=== PATIENT | female | born 1990 | race Caucasian/White ===

== ENCOUNTER 2016-04-25 16:58 | Emergency (ER) | payer SELFPAY ==
[2016-04-25] MEDS ORDERED: Ondansetron ODT 4 MG TAB ONE (17:24)
[2016-04-25 17:46] LABS: Bilirubin Negative (Negative); Blood, Urine Trace (Negative); Clarity Slightly Cloudy (Clear); Glucose, Urine (Dipstick) Negative (Negative); Leukocyte Small (Negative); Nitrite Negative (Negative); Protein, Urine (Dipstick) 30 mg/dL (Neg-Trace); Urobilinogen 0.2 mg/dL (0.2-1.0)
[2016-04-25 17:48] LABS: Pregnancy Test - Urine (BHCG) NEGATIVE (NEGATIVE); Pregu Control Background? CLEAR/WHITE (CLR/WHITE); Pregu Control Bar Appear? YES (CONTROL BAR)
[2016-04-25] MEDS ORDERED: Lidocaine 1% 20 ML MDV ONE (18:08)
[2016-04-25] MEDS ORDERED: Phenazopyridine HCl 97.5 MG TABLET ONE (18:08)
[2016-04-25] MEDS ORDERED: cefTRIAXone\\ROCEPHIN 1 GM VIAL ONE (18:08)
--- NOTE | 2016-04-25 18:51 | ERRECORD ---
[facility] EMERGENCY RECORD HPI ABDOMINAL PAIN (17:39 LHOD) CHIEF COMPLAINTS: Patient presents for evaluation of abdominal pain. HISTORIAN: History provided by patient. TIME COURSE: 2 DAYS OF LEFT SIDED ABDOMINAL PAIN ASSOCIATED WITH NAUSEA AND VOMITING. NO DIARRHEA. PT'S LAST PERIOD 3 MONTHS AGO, THINKS SHE MAY BE . ROS (17:42 LHOD) CONSTITUTIONAL: Historian denies fever. CARDIOVASCULAR: Historian denies chest pain. RESPIRATORY: Historian denies cough, denies shortness of breath. GI: Historian reports abdominal pain, denies diarrhea, reports nausea, reports vomiting. GENITOURINARY FEMALE: Historian denies dysuria, UNSURE IF . MUSCULOSKELETAL: Historian denies back pain, denies neck pain. SKIN: HX OF SKIN GRAFTS. NEUROLOGIC: Historian denies headache. NOTES: All systems reviewed, negative except as described above. PAST MEDICAL HISTORY MEDICAL HISTORY: Notes: HOLE IN HEART SINCE CHILDHOOD, Flu vaccine not up to date, Past medical history includes history of obesity, pulmonary disease. asthma. (17:10 SFRE) FEMALE SURGICAL HISTORY: SKIN GRAFT, Surgical history of cholecystectomy, Surgical history of section. (17:10 SFRE) PSYCHIATRIC HISTORY: Psychiatric history includes, bipolar disorder, no previous inpatient psychiatric admissions, Notes: ADHD. (17:10 SFRE) SOCIAL HISTORY: Patient denies alcohol use, Patient denies drug use, Patient currently uses tobacco, smokes cigarettes, Light tobacco smoker. (17:10 SFRE) NOTES: Nursing records reviewed. (17:11 LHOD) KNOWN ALLERGIES No Known Drug Allergies CURRENT MEDICATIONS (17:07 SFRE) albuterol: AEROSOL (GRAM) : Strength - 90 mcg : INHALATION Patient Dose: As Needed. VITAL SIGNS VITAL SIGNS: BP: 168/92, Pulse: 88, Resp: 18, Temp: 99.0 (Tympanic), Pain: 6 (Stabbing), O2 sat: 97 on Room Air, Time: 04/25/2016 17:05. (17:05 SFRE) BP: 160/89, Pulse: 87, Resp: 18, Temp: 99.0, Pain: 5, O2 sat: 97 on RA, Time: 04/25/2016 18:35. (18:35 SFRE) &a-1R&a+25V*p+0X*d9770W*c202B*c15G*c2P*p-0X&a-25V&a+1R Name: Nara Nichols : 1990 F26 MedRec: [id number] AcctNum: [id number] Prepared: ThuApr 25, 2016 20:11 by Interface Page 1 of 3 pMD [facility] EMERGENCY RECORD PHYSICAL EXAM (17:44 LHOD) CONSTITUTIONAL: Vital Signs Reviewed, Patient afebrile, Pulse normal, Blood pressure, hypertensive, Respiratory rate normal, Patient alert and oriented to person, place and time, SMIRKING, MORBIDLY OBESE. EYES: Sclera normal. NECK: Neck exam included findings of normal range of motion, Trachea midline. RESPIRATORY CHEST: Respiratory exam included findings of no respiratory distress, Breath sounds clear. CARDIOVASCULAR: Cardiovascular exam included findings of heart rate regular rate and rhythm. ABDOMEN FEMALE: Abdominal exam included findings of abdomen tender, to the left upper quadrant, to the left lower quadrant, mild intensity, OBESITY PRECLUDES LOCALIZATION OF AREA OF TENDERNESS. BACK: Back exam normal. UPPER EXTREMITY: Upper extremity exam normal. LOWER EXTREMITY: Lower extremity exam normal. NEURO: Neuro exam findings include patient oriented to person, place and time. SKIN: SCATTERED SKIN GRAFTS. MEDICATION ADMINISTRATION SUMMARY Drug Name: Rocephin IM Convenience, Dose Ordered: 1 g, Route: Intramuscular, Status: Given, Time: 18:14 04/25/2016, Drug Name: Pyridium, Dose Ordered: 200 mg, Route: Oral, Status: Given, Time: 18:14 04/25/2016, Drug Name: Zofran ODT, Dose Ordered: 8 mg, Route: Oral, Status: Given, Time: 17:26 04/25/2016, Detailed record available in Medication Service section. DOCTOR NOTES (17:47 LHOD) TEXT: 1747--AWAITING UA. PROBLEM LIST No recorded problems DIAGNOSIS (18:07 LHOD) FINAL: PRIMARY: UTI. PRESCRIPTION (18:08 LHOD) Cipro tablet: TABLET : 500 mg : ORAL : Quantity: 1 Unit: tab(s) Route: ORAL Schedule: 2 times a day Dispense: 20 May substitute. Refills: No Refills . NOTES: No Refills. Pyridium: TABLET : 100 mg : ORAL : Quantity: 1 Unit: tab(s) Route: ORAL Schedule: every 8 hours PRN Dispense: 6 &a-1R&a+25V*p+0X*v0539V*c202B*c15G*c2P*p-0X&a-25V&a+1R Name: Nara Nichols : 1990 F26 MedRec: [id number] AcctNum: [id number] Prepared: ThuApr 25, 2016 20:11 by Interface Page 2 of 3 pMD [facility] EMERGENCY RECORD May substitute. Refills: No Refills . NOTES: ^s=No Refills No Refills. Zofran ODT: TABLET, RAPID DISSOLVE : 8 mg : ORAL : Quantity: 1 Unit: tab(s) Route: ORAL Schedule: every 6 hours PRN Dispense: 3 May substitute. Refills: 1 . NOTES: ^s=^s=No Refills No Refills No Refills. DISPOSITION PATIENT: Disposition Type: Discharge, Disposition: *Discharge Home, Condition: Good. (18:07 LHOD) Patient left the department. (18:41 SFRE) Ladd: LHOD=MD Valeria, David SFRE=EMILY Small, Cora &a-1R&a+25V*p+0X*f2679O*c202B*c15G*c2P*p-0X&a-25V&a+1R Name: Nara Nichols : 1990 F26 MedRec: [id number] AcctNum: [id number] Prepared: ThuApr 25, 2016 20:11 by Interface Page 3 of 3 pMD MTDD
--- NOTE | 2016-04-25 18:57 | PICIS ---
[facility] EMERGENCY RECORD TRIAGE (ThuApr 25, 2016 17:07 SFRE) PATIENT: NAME: Nara Nichols, AGE: 26, GENDER: female, : Stefany 1990, TIME OF GREET: ThuApr 25, 2016 16:59, PREFERRED LANGUAGE: Upper Sorbian, ETHNICITY: Not or , ECODE BILLING MAP: [facility], SSN: [id number], Zip Code: ., KG WEIGHT: [phone], PHONE: , , , PERSON ID: [id number], PCP: NO PCP. (ThuApr 25, 2016 17:07 SFRE) TRIAGE NOTES: LEFT UPPER QUAD PAIN FOR 4/5 DAYS. THINKS SHE IS . (ThuApr 25, 2016 17:07 SFRE) COMPLAINT: ABDOMINAL PAIN. (ThuApr 25, 2016 17:07 SFRE) ADMISSION: URGENCY: 3 Urgent, ADMISSION SOURCE: Home, TRANSPORT: Walk-in, BED: TRIAGE. (ThuApr 25, 2016 17:07 SFRE) ASSESSMENT: Symptoms began 04/21/2016. (17:10 SFRE) PAIN: Patient complains of pain described as, stabbing, on a scale 0-10 patient rates pain as 6, Location LUQ, Pain is intermittent, Aggravating factors:, Aggravating factors include LAYING ON STOMACH, Relieving factors present, Relieving factors include BOYFRIEND. (17:10 SFRE) IMMUNIZATIONS: Flu vaccine not up to date. (17:10 SFRE) SIRS SCORING: Heart Rate 55-109 (0), Temp range 96.8-101.1 (0), respiratory rate 12-24 (0), Mental Status altered: no (0). (17:10 SFRE) TRIAGE SCREENING: Patient denies suicidal ideation, Patient denies presence of domestic violence. (17:10 SFRE) PROVIDERS: TRIAGE NURSE: Cora Small RN. (ThuApr 25, 2016 17:07 SFRE) VITAL SIGNS: BP 168/92, Pulse 88, Resp 18, Temp 99.0, (Tympanic), Pain 6, (Stabbing), O2 Sat 97, on Room Air, Time 04/25/2016 17:05. (17:05 SFRE) KNOWN ALLERGIES No Known Drug Allergies CURRENT MEDICATIONS (17:07 SFRE) albuterol: AEROSOL (GRAM) : Strength - 90 mcg : INHALATION Patient Dose: As Needed. VITAL SIGNS VITAL SIGNS: BP: 168/92, Pulse: 88, Resp: 18, Temp: 99.0 (Tympanic), Pain: 6 (Stabbing), O2 sat: 97 on Room Air, Time: 04/25/2016 17:05. (17:05 SFRE) BP: 160/89, Pulse: 87, Resp: 18, Temp: 99.0, Pain: 5, O2 sat: 97 on RA, Time: 04/25/2016 18:35. (18:35 SFRE) NURSING ASSESSMENT: GENITOURINARY (17:17 SFRE) CONSTITUTIONAL: Patient arrives ambulatory, Gait steady, History obtained from patient, Patient appears comfortable, Patient &a-1R&a+25V*p+0X*n7220Z*c202B*c15G*c2P*p-0X&a-25V&a+1R Name: Nara Nichols : 1990 F26 MedRec: [id number] AcctNum: [id number] Prepared: ThuApr 25, 2016 20:18 by Interface Page 1 of 8 pMD [facility] EMERGENCY RECORD cooperative, Patient alert, Oriented to person, place and time, Skin warm, Skin dry, Skin normal in color, Mucous membranes pink, Mucous membranes moist, Patient is well-groomed, Patient complains of ABD PAIN., AFTER GOING THROUGH HX OF PAIN, FRIEND STATES SHE REALLY JUST WANTS TO KNOW IF SHE'S . PAIN FEMALE: Pain exacerbated by, LYING ON HER STOMACH, Pain relieved by, "MY BOYFRIEND", sharp pain, Pain radiates, RIGHT LOWER QUAD, Onset of pain 04/21/2016, intermittent, on a scale 0-10 patient rates pain as 6. GENITOURINARY FEMALE: no associated urinary complaints, , milestones: PATIENT REPORTS THAT SHE THINKS SHE IS . ABDOMEN: Abdomen assessment findings include abdomen symmetrical, Abdomen soft, no associated nausea, no associated vomiting, no associated diarrhea, no associated constipation. SAFETY: Side rails up, Cart/Stretcher in lowest position, Family at bedside, Call light within reach, Hospital ID band on. NURSING PROCEDURE: DISCHARGE NOTE (18:35 SFRE) DISCHARGE: Patient discharged to home, ambulating without assistance, family driving, accompanied by other family member, Summary of Care printed/ provided, Patient requested and was provided an electronic copy of Discharge Instructions, Discharge instructions given to patient, Simple or moderate discharge teaching performed, by EMILY LIVINGSTON, F/U WITH PCP. RX DIRECTED. RETURN TO ED NEEDED FOR NEW/CONCERNING OR WORSENING SYMPTOMS., Prescriptions given and instructions on side effects given, Name of prescription(s) given: CIPRO, PYRIDIUM, ZOFRAN, Above person(s) verbalized understanding of discharge instructions and follow-up care. VITAL SIGNS: BP: 160, / 89, Pulse: 87, Resp: 18, Temp: 99.0, Pain: 5, O2 sat: 97, on: RA. ORDER DETAILS Order Name: Culture, Urine, Status: Active, Time: 18:07 04/25/2016, User: MANDA, - Ordered for: MD Shaw Lefayne, - Entered by: MD Shaw Lefayne - ThuApr 25, 2016 18:07, - Quantity: 1, Order Name: Test, Urine (BHCG), Status: Active, Time: 17:19 04/25/2016, User: MANDA, - Ordered for: MD Shaw Lefayne, - Entered by: MD Shaw Lefayne - ThuApr 25, 2016 17:19, - Quantity: 1, Order Name: Urinalysis with Microscopic, Status: Active, Time: 17:19 04/25/2016, User: MANDA, - Ordered for: MD Shaw Lefayne, - Entered by: MD Shaw Lefayne - ThuApr 25, 2016 17:19, - Quantity: 1. &a-1R&a+25V*p+0X*x3826L*c202B*c15G*c2P*p-0X&a-25V&a+1R Name: Nara Nichols : 1990 F26 MedRec: [id number] AcctNum: [id number] Prepared: ThuApr 25, 2016 20:18 by Interface Page 2 of 8 pMD [facility] EMERGENCY RECORD MEDICATION ADMINISTRATION SUMMARY Drug Name: Rocephin IM Convenience, Dose Ordered: 1 g, Route: Intramuscular, Status: Given, Time: 18:14 04/25/2016, Drug Name: Pyridium, Dose Ordered: 200 mg, Route: Oral, Status: Given, Time: 18:14 04/25/2016, Drug Name: Zofran ODT, Dose Ordered: 8 mg, Route: Oral, Status: Given, Time: 17:26 04/25/2016, Detailed record available in Medication Service section. MEDICATION SERVICE Pyridium: Order: Pyridium (phenazopyridine HCl) - Dose: 200 mg : Oral Ordered by: David Shaw MD Entered by: David Shaw MD ThuApr 25, 2016 18:06 , Acknowledged by: Cora Small RN ThuApr 25, 2016 18:07 Documented as given by: Cora Small RN ThuApr 25, 2016 18:14 Patient, Medication, Dose, Route and Time verified prior to administration. Amount given: 200MG, Site: Medication administered P.O., Correct patient, time, route, dose and medication confirmed prior to administration, Patient advised of actions and side-effects prior to administration, Allergies confirmed and medications reviewed prior to administration, Patient in position of comfort, Side rails up, Cart in lowest position, Family at bedside. Rocephin IM Convenience: Order: Rocephin IM Convenience (ceftriaxone sodium/lidocaine HCl) - Dose: 1 g : Intramuscular Ordered by: David Shaw MD Entered by: David Shaw MD ThuApr 25, 2016 18:06 , Acknowledged by: Cora Small RN ThuApr 25, 2016 18:07 Documented as given by: Cora Small RN ThuApr 25, 2016 18:14 Patient, Medication, Dose, Route and Time verified prior to administration. IM antibiotic, Amount given: 1G, Medication administered to left hip, Medication combined for administration with 1% LIDOCAINE. 2.5 ML, Patient appears Awake and alert- acceptable, Correct patient, time, route, dose and medication confirmed prior to administration, Patient advised of actions and side-effects prior to administration, Allergies confirmed and medications reviewed prior to administration, Patient in position of comfort, Side rails up, Cart in lowest position, Family at bedside. : Follow Up : Response assessment performed, No signs or symptoms of allergic reaction noted. (18:38 SFRE) Jesus Albertoan ODT: Order: Zofran ODT (ondansetron) - Dose: 8 mg : Oral Ordered by: David Shaw MD Entered by: David Shaw MD ThuApr 25, 2016 17:19 , Acknowledged by: Cora Small RN ThuApr 25, 2016 17:23 &a-1R&a+25V*p+0X*l7178W*c202B*c15G*c2P*p-0X&a-25V&a+1R Name: Nara Nichols : 1990 F26 MedRec: [id number] AcctNum: [id number] Prepared: ThuApr 25, 2016 20:18 by Interface Page 3 of 8 pMD [facility] EMERGENCY RECORD Documented as given by: Cora Small RN ThuApr 25, 2016 17:26 Patient, Medication, Dose, Route and Time verified prior to administration. Amount given: 8MG, Site: Medication administered P.O., Correct patient, time, route, dose and medication confirmed prior to administration, Patient advised of actions and side-effects prior to administration, Allergies confirmed and medications reviewed prior to administration, Patient in position of comfort, Side rails up, Cart in lowest position, Family at bedside. HPI ABDOMINAL PAIN (17:39 LHOD) CHIEF COMPLAINTS: Patient presents for evaluation of abdominal pain. HISTORIAN: History provided by patient. TIME COURSE: 2 DAYS OF LEFT SIDED ABDOMINAL PAIN ASSOCIATED WITH NAUSEA AND VOMITING. NO DIARRHEA. PT'S LAST PERIOD 3 MONTHS AGO, THINKS SHE MAY BE . ROS (17:42 LHOD) CONSTITUTIONAL: Historian denies fever. CARDIOVASCULAR: Historian denies chest pain. RESPIRATORY: Historian denies cough, denies shortness of breath. GI: Historian reports abdominal pain, denies diarrhea, reports nausea, reports vomiting. GENITOURINARY FEMALE: Historian denies dysuria, UNSURE IF . MUSCULOSKELETAL: Historian denies back pain, denies neck pain. SKIN: HX OF SKIN GRAFTS. NEUROLOGIC: Historian denies headache. NOTES: All systems reviewed, negative except as described above. PAST MEDICAL HISTORY MEDICAL HISTORY: Notes: HOLE IN HEART SINCE CHILDHOOD, Flu vaccine not up to date, Past medical history includes history of obesity, pulmonary disease. asthma. (17:10 SFRE) FEMALE SURGICAL HISTORY: SKIN GRAFT, Surgical history of cholecystectomy, Surgical history of section. (17:10 SFRE) PSYCHIATRIC HISTORY: Psychiatric history includes, bipolar disorder, no previous inpatient psychiatric admissions, Notes: ADHD. (17:10 SFRE) SOCIAL HISTORY: Patient denies alcohol use, Patient denies drug use, Patient currently uses tobacco, smokes cigarettes, Light tobacco smoker. (17:10 SFRE) NOTES: Nursing records reviewed. (17:11 LHOD) PHYSICAL EXAM (17:44 LHOD) CONSTITUTIONAL: Vital Signs Reviewed, Patient afebrile, Pulse normal, Blood pressure, hypertensive, Respiratory rate normal, Patient alert and oriented to person, place and time, &a-1R&a+25V*p+0X*s5815M*c202B*c15G*c2P*p-0X&a-25V&a+1R Name: Nara Nichols : 1990 F26 MedRec: [id number] AcctNum: [id number] Prepared: ThuApr 25, 2016 20:18 by Interface Page 4 of 8 pMD [facility] EMERGENCY RECORD SMIRKING, MORBIDLY OBESE. EYES: Sclera normal. NECK: Neck exam included findings of normal range of motion, Trachea midline. RESPIRATORY CHEST: Respiratory exam included findings of no respiratory distress, Breath sounds clear. CARDIOVASCULAR: Cardiovascular exam included findings of heart rate regular rate and rhythm. ABDOMEN FEMALE: Abdominal exam included findings of abdomen tender, to the left upper quadrant, to the left lower quadrant, mild intensity, OBESITY PRECLUDES LOCALIZATION OF AREA OF TENDERNESS. BACK: Back exam normal. UPPER EXTREMITY: Upper extremity exam normal. LOWER EXTREMITY: Lower extremity exam normal. NEURO: Neuro exam findings include patient oriented to person, place and time. SKIN: SCATTERED SKIN GRAFTS. LAB INTERPRETATION (18:09 LHOD) INTERPRETATION: I reviewed the lab results, Urinalysis abnormal, positive for leukocytes, Urine HCG negative. EVENTS TRANSFER: Triage to Emergency Triage. (ThuApr 25, 2016 17:07 SFRE) Emergency Triage to Main ED -04. (17:14 SFRE) Removed from Emergency Main ED -04. (18:41 SFRE) DOCTOR NOTES (17:47 LHOD) TEXT: 1747--AWAITING UA. PROBLEM LIST No recorded problems DIAGNOSIS (18:07 LHOD) FINAL: PRIMARY: UTI. DISPOSITION PATIENT: Disposition Type: Discharge, Disposition: *Discharge Home, Condition: Good. (18:07 LHOD) Patient left the department. (18:41 SFRE) INSTRUCTION (18:08 LHOD) DISCHARGE: UTI PYELONEPHRITIS FEMALE ADULT. FOLLOWUP: Follow up with Primary Care Physician in 7-10 days. SPECIAL: Tylenol or Advil for Pain *RETURN IF WORSE Follow-up with your PCP. &a-1R&a+25V*p+0X*e7445Q*c202B*c15G*c2P*p-0X&a-25V&a+1R Name: Nara Nichols : 1990 F26 MedRec: [id number] AcctNum: [id number] Prepared: ThuApr 25, 2016 20:18 by Interface Page 5 of 8 pMD [facility] EMERGENCY RECORD PRESCRIPTION (18:08 LHOD) Cipro tablet: TABLET : 500 mg : ORAL : Quantity: 1 Unit: tab(s) Route: ORAL Schedule: 2 times a day Dispense: 20 May substitute. Refills: No Refills . NOTES: No Refills. Pyridium: TABLET : 100 mg : ORAL : Quantity: 1 Unit: tab(s) Route: ORAL Schedule: every 8 hours PRN Dispense: 6 May substitute. Refills: No Refills . NOTES: ^s=No Refills No Refills. Zofran ODT: TABLET, RAPID DISSOLVE : 8 mg : ORAL : Quantity: 1 Unit: tab(s) Route: ORAL Schedule: every 6 hours PRN Dispense: 3 May substitute. Refills: 1 . NOTES: ^s=^s=No Refills No Refills No Refills. IMAGING *DISCHARGE INSTRUCTIONS RECEIPT: Image captured from scanner. (18:40 SFRE) *SUPPLY CHARGE SHEET: Image captured from scanner. (18:41 SFRE) ADMIN (20:05 LHOD) DIGITAL SIGNATURE: MD Shaw Lefayne. RESULTS LABORATORY: Urinalysis with Microscopic Collection DT: ThuApr 25, 2016 17:35, Color Yellow , Range (Yellow), Clarity Slightly Cloudy , Range (Clear), Specific [place], Urine 1.020 , Range (1.002-1.036), pH, Urine 6.0 , Range (5.0-9.0), *Leukocyte Small - H , Range (Negative), Nitrite Negative , Range (Negative), *Protein, Urine (Dipstick) 30 - H mg/dL, Range (Neg-Trace), Glucose, Urine (Dipstick) Negative mg/dL, Range (Negative), Ketone, Urine Negative mg/dL, Range (Negative), Urobilinogen 0.2 mg/dL, Range (0.2-1.0), Bilirubin Negative , Range (Negative), *Blood, Urine Trace - H , Range (Negative). (17:51 LHOD) Urinalysis with Microscopic Collection DT: ThuApr 25, 2016 17:35, Color Yellow , Range (Yellow), Clarity Slightly Cloudy , Range (Clear), Specific [place], Urine 1.020 , Range (1.002-1.036), pH, Urine 6.0 , Range (5.0-9.0), *Leukocyte Small - H , Range (Negative), Nitrite Negative , Range (Negative), *Protein, Urine (Dipstick) 30 - H mg/dL, Range (Neg-Trace), Glucose, Urine (Dipstick) Negative mg/dL, Range (Negative), &a-1R&a+25V*p+0X*v5883G*c202B*c15G*c2P*p-0X&a-25V&a+1R Name: Nara Nichols : 1990 F26 MedRec: [id number] AcctNum: [id number] Prepared: ThuApr 25, 2016 20:18 by Interface Page 6 of 8 pMD [facility] EMERGENCY RECORD Ketone, Urine Negative mg/dL, Range (Negative), Urobilinogen 0.2 mg/dL, Range (0.2-1.0), Bilirubin Negative , Range (Negative), *Blood, Urine Trace - H , Range (Negative), *RBC/HPF 7-10 - H HPF, Range (0-3), *WBC/HPF Greater Than 50-TNTC HPF, * - H , Range (0-3). (18:04 LHOD) Test, Urine (BHCG) Collection DT: ThuApr 25, 2016 17:35, Test - Urine (BHCG) NEGATIVE , Range (NEGATIVE), Method of sensitivity- Indeterminant: results should be repeated, after 48 hours. Positive: results may be detected as early as 4-5 days before a first missed menses. Elimination of BHCG-, Elimination following first trimester D&C: 29-44 Days , Elimination following term : 8-24 Days , Specific [place] 1.020 , Range (1.002-1.036), A dilute urine specimen may, not contain member services representative levels of hCG. If is still, suspected, a first morning urine specimen OR a random blood specimen should, be obtained from the patient 48-72 hours later and re-tested. , . (18:04 LHOD) Urinalysis with Microscopic Collection DT: ThuApr 25, 2016 17:35, Color Yellow , Range (Yellow), Clarity Slightly Cloudy , Range (Clear), Specific [place], Urine 1.020 , Range (1.002-1.036), pH, Urine 6.0 , Range (5.0-9.0), *Leukocyte Small - H , Range (Negative), Nitrite Negative , Range (Negative), *Protein, Urine (Dipstick) 30 - H mg/dL, Range (Neg-Trace), Glucose, Urine (Dipstick) Negative mg/dL, Range (Negative), Ketone, Urine Negative mg/dL, Range (Negative), Urobilinogen 0.2 mg/dL, Range (0.2-1.0), Bilirubin Negative , Range (Negative), *Blood, Urine Trace - H , Range (Negative), *RBC/HPF 7-10 - H HPF, Range (0-3), *WBC/HPF Greater Than 50-TNTC HPF, * - H , Range (0-3). (18:04 SFRE) Test, Urine (BHCG) Collection DT: ThuApr 25, 2016 17:35, Test - Urine (BHCG) NEGATIVE , Range (NEGATIVE), Method of sensitivity- Indeterminant: results should be repeated, after 48 hours. Positive: results may be detected as early as 4-5 &a-1R&a+25V*p+0X*x6873E*c202B*c15G*c2P*p-0X&a-25V&a+1R Name: Nara Nichols : 1990 F26 MedRec: [id number] AcctNum: [id number] Prepared: ThuApr 25, 2016 20:18 by Interface Page 7 of 8 pMD [facility] EMERGENCY RECORD days before a first missed menses. Elimination of BHCG-, Elimination following first trimester D&C: 29-44 Days , Elimination following term : 8-24 Days , Specific [place] 1.020 , Range (1.002-1.036), A dilute urine specimen may, not contain member services representative levels of hCG. If is still, suspected, a first morning urine specimen OR a random blood specimen should, be obtained from the patient 48-72 hours later and re-tested. , . (18:04 SFRE) Ladd: LHOD=MD Valeria, David SFRE=EMILY Small, Cora &a-1R&a+25V*p+0X*u2911Y*c202B*c15G*c2P*p-0X&a-25V&a+1R Name: Nara Nichols : 1990 F26 MedRec: [id number] AcctNum: [id number] Prepared: ThuApr 25, 2016 20:18 by Interface Page 8 of 8 pMD MTDD
== END 2016-04-25 18:35 | disposition home or self-care (01) ==
LOC: MADERS 16:58
DX: N39.0 Urinary tract infection, site not specified (principal); J45.909 Unspecified asthma, uncomplicated; E66.9 Obesity, unspecified; F17.210 Nicotine dependence, cigarettes, uncomplicated; F90.9 Attention-deficit hyperactivity disorder, unspecified type
CPT/HCPCS: 81001; 81025; 87086; 87186; 96372; J0696; J2001; Q0162